=== PATIENT | male | born 1965 | race African-American/Black ===

== ENCOUNTER 2016-12-12 17:30 | Emergency (ER) | payer OTHER ==
[~2016-12-12] VITALS: Ht 180.3 cm; Wt 102.0 kg
[2016-12-12] MEDS ORDERED: NAPROSYN500 MG PO (19:19)
[2016-12-12] MEDS ORDERED: FLEXERIL10 MG PO (19:19)
[2016-12-12 20:29] VITALS: BP 141/68
== END 2016-12-12 20:30 | disposition home or self-care (01) ==
LOC: EME 17:30
DX: S09.90XA Unspecified injury of head, initial encounter (principal); S16.1XXA Strain of muscle, fascia and tendon at neck level, initial encounter; V43.52XA Car driver injured in collision with other type car in traffic accident, initial encounter; Y92.410 Unspecified street and highway as the place of occurrence of the external cause
CPT/HCPCS: 70450; 72125; 99281; 99284